=== PATIENT | male | born 1965 | race African-American/Black ===

== ENCOUNTER 2021-11-08 13:17 | Inpatient (IN) | payer OTHER ==
[2021-11-08] MEDS ORDERED: ACETAMINOPHEN 325 MG TABLET (FP) PO PRN ×2 (14:57)
[2021-11-08] MEDS ORDERED: MAGNESIUM HYDROX 2400MG/30ML ORAL SUSPENSION 30 ML CUP PO PRN (14:57)
[2021-11-08] MEDS ORDERED: BISMUTH SUBSALICYLATE 524 MG/30 ML PO PRN (14:57)
[2021-11-08] MEDS ORDERED: IBUPROFEN 400 MG TABLET (FP) PO PRN (14:57)
[2021-11-08] MEDS ORDERED: MENTHOL/PHENOL 1 EACH UD MM PRN (14:57)
[2021-11-08] MEDS ORDERED: ONDANSETRON *ODT* 4 MG TABLET SL PRN (14:57)
[2021-11-08] MEDS ORDERED: diazePAM 5 MG TABLET PO PRN (14:57)
[2021-11-08] MEDS ORDERED: MAG HYDROX/AL HYDROX/SIMETH 30 ML UNIT-DOSE CUP PO PRN (14:57)
[2021-11-08] MEDS ORDERED: METHOCARBAMOL 500 MG TABLET PO PRN (14:57)
[2021-11-08] MEDS ORDERED: MAGNESIUM CITRATE 300 ML BOTTLE PO PRN (14:57)
[2021-11-08 20:00] VITALS: BMI 30.1
[2021-11-08] MEDS ORDERED: hydrOXYzine PAMOATE 25 MG CAPSULE (FP) PO ONE (20:22)
[2021-11-08] MEDS: hydrOXYzine PAMOATE 25 MG CAPSULE (FP) PO SCH ×2 (20:24→21:54)
[2021-11-08] MEDS: THIAMINE HCL 100 MG TABLET (FP) PO SCH (21:54)
[2021-11-08] MEDS: MELATONIN 5 MG TABLETS PO SCH (21:54)
[2021-11-08] MEDS: diazePAM 5 MG TABLET PO SCH (22:00)
[2021-11-09] MEDS: diazePAM 5 MG TABLET PO SCH ×5 (06:06→22:28)
[2021-11-09] MEDS: hydrOXYzine PAMOATE 25 MG CAPSULE (FP) PO SCH ×5 (06:06→22:28)
[2021-11-09] MEDS ORDERED: methaDONE HCL 10 MG TABLET PO SCH (10:00)
[2021-11-09] MEDS ORDERED: methaDONE HCL 10 MG TABLET (FOR DETOX USE ONLY) PO SCH (10:00)
[2021-11-09] MEDS ORDERED: methaDONE 40 MG, methaDONE 20 MG PO ONE (10:15)
[2021-11-09] MEDS ORDERED: methaDONE HCL 10 MG TABLET ONE (10:55)
[2021-11-09] MEDS ORDERED: methaDONE HCL 40 MG DISPERSABLE TABLET ONE (10:56)
[2021-11-09] MEDS: PRENATAL VITAMINS W/ FOLIC ACID TABLET (FP) PO SCH (10:58)
[2021-11-09] MEDS ORDERED: diazePAM 5 MG TABLET PO PRN (11:25)
[2021-11-09 11:58] LABS: HEMATOCRIT 39.3 % (35.4-49); HEMOGLOBIN 12.7 GM/dL (11.7-16.9); MCH 28.9 pg (25.7-33.7); MCHC 32.4 g/dl (32.0-35.9); MEAN CELL VOLUME 89.4 fl (80-96); MEAN PLT VOLUME 7.1 fl (7.5-11.1); PLATELET COUNT 333 10^3/uL (134-434); RDW 13.9 % (11.9-15.9); WHITE BLOOD COUNT 2.8 K/mm3 (4.0-10.0)
[2021-11-09 12:41] LABS: CALCIUM 8.8 mg/dL (8.5-10.1)
[2021-11-09 12:42] LABS: BLOOD UREA NITROGEN 8.9 mg/dL (7-18)
[2021-11-09 12:46] LABS: TOT PROT 6.4 g/dl (6.4-8.2)
[2021-11-09 12:47] LABS: BILIRUBIN,TOTAL 0.4 mg/dL (0.2-1)
[2021-11-09] MEDS: NICOTINE 10 MG CARTRIDGE (INHALER) IH PRN ×2 (15:30→20:28)
[2021-11-09] MEDS: THIAMINE HCL 100 MG TABLET (FP) PO SCH (22:28)
[2021-11-09] MEDS: MELATONIN 5 MG TABLETS PO SCH (22:28)
[2021-11-10] MEDS ORDERED: methaDONE HCL 10 MG TABLET ONE (04:14)
[2021-11-10] MEDS ORDERED: methaDONE HCL 40 MG DISPERSABLE TABLET ONE (04:14)
[2021-11-10] MEDS ORDERED: diazePAM 5 MG TABLET PO SCH (06:00)
[2021-11-10] MEDS: diazePAM 5 MG TABLET PO SCH ×4 (06:59→22:38)
[2021-11-10] MEDS: methaDONE 40 MG, methaDONE 20 MG PO SCH (07:04)
[2021-11-10] MEDS: hydrOXYzine PAMOATE 25 MG CAPSULE (FP) PO SCH ×5 (07:05→22:38)
[2021-11-10] MEDS: PRENATAL VITAMINS W/ FOLIC ACID TABLET (FP) PO SCH (10:34)
[2021-11-10] MEDS: NICOTINE 10 MG CARTRIDGE (INHALER) IH PRN (11:12)
[2021-11-10] MEDS: THIAMINE HCL 100 MG TABLET (FP) PO SCH (22:38)
[2021-11-10] MEDS: MELATONIN 5 MG TABLETS PO SCH (22:38)
[2021-11-11] MEDS ORDERED: methaDONE HCL 40 MG DISPERSABLE TABLET ONE (04:26)
[2021-11-11] MEDS ORDERED: methaDONE HCL 10 MG TABLET ONE (04:26)
[2021-11-11] MEDS ORDERED: diazePAM 5 MG TABLET PO SCH (06:00)
[2021-11-11] MEDS: methaDONE 40 MG, methaDONE 20 MG PO SCH (06:32)
[2021-11-11] MEDS: hydrOXYzine PAMOATE 25 MG CAPSULE (FP) PO SCH ×5 (06:32→22:37)
[2021-11-11] MEDS: diazePAM 5 MG TABLET PO SCH ×3 (06:33→22:37)
[2021-11-11] MEDS: PRENATAL VITAMINS W/ FOLIC ACID TABLET (FP) PO SCH (10:37)
[2021-11-11] MEDS: NICOTINE 10 MG CARTRIDGE (INHALER) IH PRN ×3 (10:39→22:36)
[2021-11-11] MEDS: amLODIPine BESYLATE 10 MG TABLET (FP) PO SCH (18:48)
[2021-11-11] MEDS: THIAMINE HCL 100 MG TABLET (FP) PO SCH (22:37)
[2021-11-11] MEDS: MELATONIN 5 MG TABLETS PO SCH (22:37)
[2021-11-11] MEDS ORDERED: cloNIDine HCL 0.1 MG TABLET PO ONE (23:09)
[2021-11-12] MEDS ORDERED: methaDONE HCL 10 MG TABLET ONE (04:14)
[2021-11-12] MEDS ORDERED: methaDONE HCL 40 MG DISPERSABLE TABLET ONE (04:14)
[2021-11-12] MEDS: methaDONE 40 MG, methaDONE 20 MG PO SCH (05:51)
[2021-11-12] MEDS ORDERED: diazePAM 5 MG TABLET PO ONE (06:00)
[2021-11-12] MEDS: hydrOXYzine PAMOATE 25 MG CAPSULE (FP) PO SCH (06:01)
[2021-11-12] MEDS: diazePAM 5 MG TABLET PO SCH ×2 (06:01→17:07)
[2021-11-12] MEDS ORDERED: hydrOXYzine PAMOATE 25 MG CAPSULE (FP) PO PRN (09:03)
[2021-11-12] MEDS: amLODIPine BESYLATE 10 MG TABLET (FP) PO SCH (10:07)
[2021-11-12] MEDS: PRENATAL VITAMINS W/ FOLIC ACID TABLET (FP) PO SCH (10:08)
[2021-11-12] MEDS: MELATONIN 5 MG TABLETS PO SCH (22:04)
[2021-11-12] MEDS: THIAMINE HCL 100 MG TABLET (FP) PO SCH (22:04)
[2021-11-13] MEDS ORDERED: methaDONE HCL 10 MG TABLET ONE (04:16)
[2021-11-13] MEDS ORDERED: methaDONE HCL 40 MG DISPERSABLE TABLET ONE (04:17)
[2021-11-13] MEDS: methaDONE 40 MG, methaDONE 20 MG PO SCH (05:26)
[2021-11-13] MEDS ORDERED: diazePAM 5 MG TABLET PO ONE (06:00)
[2021-11-13 09:35] VITALS: BP 156/96; PULSE 99; TEMP 96.9
[2021-11-13 10:40] LABS: BASO % 0.2 % (0-2.0); EOS % 3.2 % (0-4.5); HEMATOCRIT 42.5 % (35.4-49); HEMOGLOBIN 14.4 GM/dL (11.7-16.9); LYMPH % 40.5 % (8-40); MCH 29.5 pg (25.7-33.7); MCHC 33.9 g/dl (32.0-35.9); MEAN CELL VOLUME 87.3 fl (80-96); MEAN PLT VOLUME 6.9 fl (7.5-11.1); MONO % 16.2 % (3.8-10.2); NEUT % 39.9 % (42.8-82.8); PLATELET COUNT 423 10^3/uL (134-434); RBC 4.87 M/mm3 (4.00-5.60); RDW 13.4 % (11.9-15.9); WHITE BLOOD COUNT 3.8 K/mm3 (4.0-10.0)
== END 2021-11-13 09:56 | disposition left against medical advice (07) | DRG 770 ==
LOC: YASAS 13:17 → Y3N 20:53
PROVIDERS: ADMIT Allergy & Immunology; ATTEND Allergy & Immunology
PROC: HZ2ZZZZ Detoxification Services for Substance Abuse Treatment (ICD-10-PCS; principal; 2021-11-08)
DX: F11.23 Opioid dependence with withdrawal (principal); F13.230 Sedative, hypnotic or anxiolytic dependence with withdrawal, uncomplicated; F17.210 Nicotine dependence, cigarettes, uncomplicated; F20.9 Schizophrenia, unspecified; F41.8 Other specified anxiety disorders; F32.A Depression, unspecified; U07.1 COVID-19; E88.09 Other disorders of plasma-protein metabolism, not elsewhere classified; A53.0 Latent syphilis, unspecified as early or late; D72.819 Decreased white blood cell count, unspecified; I10 Essential (primary) hypertension; Z86.19 Personal history of other infectious and parasitic diseases
CPT/HCPCS: 36415; 80053; 85025; 85027; 86593; 86780; C9803; J0735; U0003; U0005

== ENCOUNTER 2022-04-05 14:06 | Inpatient (IN) | payer OTHER, BC ==
[2022-04-05 14:44] VITALS: BMI 29.5
[2022-04-05] MEDS ORDERED: DICYCLOMINE HCL 10 MG CAPSULE PO PRN (15:56)
[2022-04-05] MEDS ORDERED: MAG HYDROX/AL HYDROX/SIMETH 30 ML UNIT-DOSE CUP PO PRN (15:56)
[2022-04-05] MEDS ORDERED: NICOTINE 10 MG CARTRIDGE (INHALER) IH PRN (15:56)
[2022-04-05] MEDS ORDERED: BENZOCAINE/MENTHOL (CHLORASEPTIC ) LOZENGE MM PRN (15:56)
[2022-04-05] MEDS ORDERED: IBUPROFEN 600 MG TABLET (FP) PO PRN (15:56)
[2022-04-05] MEDS ORDERED: diazePAM 5 MG TABLET PO PRN (15:56)
[2022-04-05] MEDS ORDERED: MAGNESIUM CITRATE 300 ML BOTTLE PO PRN (15:56)
[2022-04-05] MEDS ORDERED: BISMUTH SUBSALICYLATE 524 MG/30 ML PO PRN (15:56)
[2022-04-05] MEDS ORDERED: LOPERAMIDE HCL 2 MG CAPSULE PO PRN (15:56)
[2022-04-05] MEDS ORDERED: IBUPROFEN 400 MG TABLET (FP) PO PRN (15:56)
[2022-04-05] MEDS ORDERED: ONDANSETRON *ODT* 4 MG TABLET SL PRN (15:56)
[2022-04-05] MEDS ORDERED: MAGNESIUM HYDROX 2400MG/30ML ORAL SUSPENSION 30 ML CUP PO PRN (15:56)
[2022-04-05] MEDS ORDERED: ACETAMINOPHEN 325 MG TABLET (FP) PO PRN ×2 (15:56)
[2022-04-05] MEDS ORDERED: diazePAM 5 MG TABLET PO SCH (17:00)
[2022-04-05] MEDS ORDERED: hydrOXYzine PAMOATE 25 MG CAPSULE (FP) PO SCH (18:00)
[2022-04-05] MEDS ORDERED: cloNIDine HCL 0.1 MG TABLET PO ONE (21:48)
[2022-04-05] MEDS ORDERED: MELATONIN 5 MG TABLETS PO SCH (22:00)
[2022-04-05] MEDS ORDERED: THIAMINE HCL 100 MG TABLET (FP) PO SCH (22:00)
[2022-04-05] MEDS: METHOCARBAMOL 500 MG TABLET PO PRN (23:38)
[2022-04-05] MEDS: hydrOXYzine PAMOATE 25 MG CAPSULE (FP) PO PRN (23:38)
[2022-04-06] MEDS ORDERED: NICOTINE 7 MG/24 HOURS TOPICAL PATCH TD SCH (10:00)
[2022-04-06] MEDS ORDERED: PRENATAL VITAMINS W/ FOLIC ACID TABLET (FP) PO SCH (10:00)
[2022-04-06] MEDS: METHOCARBAMOL 500 MG TABLET PO PRN (10:59)
[2022-04-06] MEDS: hydrOXYzine PAMOATE 25 MG CAPSULE (FP) PO PRN (10:59)
[2022-04-06] MEDS ORDERED: methaDONE HCL 10 MG TABLET PO SCH (11:45)
[2022-04-06] MEDS ORDERED: methaDONE 40 MG, methaDONE 20 MG PO SCH (12:30)
[2022-04-06 13:12] LABS: HEMATOCRIT 35.7 % (35.4-49); HEMOGLOBIN 11.9 GM/dL (11.7-16.9); MCH 29.2 pg (25.7-33.7); MCHC 33.3 g/dl (32.0-35.9); MEAN CELL VOLUME 87.6 fl (80-96); MEAN PLT VOLUME 6.8 fl (7.5-11.1); PLATELET COUNT 328 10^3/uL (134-434); RBC 4.08 M/mm3 (4.00-5.60); RDW 13.9 % (11.9-15.9); WHITE BLOOD COUNT 5.1 K/mm3 (4.0-10.0)
[2022-04-06 13:36] LABS: BLOOD UREA NITROGEN 11.6 mg/dL (7-18); CALCIUM 8.8 mg/dL (8.5-10.1)
[2022-04-06 13:41] LABS: BILIRUBIN,TOTAL 0.5 mg/dL (0.2-1); TOT PROT 6.2 g/dl (6.4-8.2)
[2022-04-06] MEDS ORDERED: diazePAM 5 MG TABLET PO PRN (15:54)
[2022-04-06] MEDS ORDERED: diazePAM 5 MG TABLET PO SCH (17:00)
[2022-04-06 20:02] VITALS: TEMP 97.1
[2022-04-07 02:18] VITALS: BP 145/102; PULSE 112
[2022-04-07] MEDS ORDERED: diazePAM 5 MG TABLET PO SCH ×2 (06:00)
[2022-04-08] MEDS ORDERED: diazePAM 5 MG TABLET PO SCH ×2 (06:00)
[2022-04-09] MEDS ORDERED: diazePAM 5 MG TABLET PO ONE ×2 (06:00)
== END 2022-04-06 19:30 | disposition home or self-care (01) | DRG 897 ==
LOC: YASAS 14:06 → Y6N 18:19 → UNDOADMIN 18:19 → UNDODISIN 04-06 19:30
PROVIDERS: ADMIT Allergy & Immunology; ATTEND Surgery
PROC: HZ2ZZZZ Detoxification Services for Substance Abuse Treatment (ICD-10-PCS; principal; 2022-04-05)
DX: F13.230 Sedative, hypnotic or anxiolytic dependence with withdrawal, uncomplicated (principal); F11.20 Opioid dependence, uncomplicated; F17.210 Nicotine dependence, cigarettes, uncomplicated; F32.A Depression, unspecified; I10 Essential (primary) hypertension; F91.8 Other conduct disorders; Z91.19 Patient's noncompliance with other medical treatment and regimen; Z86.19 Personal history of other infectious and parasitic diseases
CPT/HCPCS: 36415; 80053; 85027; 86593; 86780; 87811; C9803-CS; J0735; U0003; U0005